=== PATIENT | male | born 1970 | race Caucasian/White ===

== ENCOUNTER 2016-10-31 06:50 | Emergency (ER) | payer OTHER ==
[2016-10-31] MEDS ORDERED: ONDANSETRON 4 MG/2 ML VIAL IVPB ONE (07:04)
[2016-10-31] MEDS ORDERED: SODIUM CHLORIDE 0.9% 1000 ML INFUS.BAG IV ONE (07:04)
[2016-10-31] MEDS ORDERED: FAMOTIDINE 20 MG/50 ML IVPB 50 ML IVPB ONE ×4 (07:04→07:19)
[2016-10-31 07:05] VITALS: BP 140/93; PULSE 53; TEMP 97.5; BMI 26.7
--- NOTE | 2016-10-31 07:08 | PDOC ---
History of Present Illness - General Chief Complaint: Pain, Acute Stated Complaint: UPPER ABDOMINAL PAIN, DIARRHEA Time Seen by Provider: 10/31/16 07:00 History Source: Patient Exam Limitations: No Limitations - History of Present Illness Initial Comments: 10/31/16 07:00 45 year male, hs of GERD on nexium presents with upper abd symptoms x 12 hours. Ate heavy meal last night. Since then has had abd bloating, urge to vomit, multiple bouts of diarrhea, gripping epigastric pain. No fever/ chills. pmh: as above no dm, htn fhx: nonc-ntrib ros: reviewed and otherwise negative Past History - Past Medical History Allergies/Adverse Reactions: Allergies Allergy/AdvReac Type Severity Reaction Status Date / Time orphenadrine citrate Allergy Verified 10/31/16 06:52 [From Norflex] Home Medications: Ambulatory Orders Esomeprazole Magnesium [Nexium 24Hr] 40 mg PO DAILY 10/31/16 *Physical Exam - Physical Exam General Appearance: Yes: Appropriately Dressed, Mild Distress HEENT: positive: Normal Voice. negative: Scleral Icterus (R), Scleral Icterus ( L) Neck: negative: Lymphadenopathy (R) Respiratory/Chest: positive: Lungs Clear Cardiovascular: positive: Regular Rhythm Gastrointestinal/Abdominal: positive: Tender Lymphatic: negative: Adenopathy Musculoskeletal: positive: Normal Inspection Extremity: positive: Normal Capillary Refill Integumentary: positive: Normal Color. negative: Dry Neurologic: positive: Fully Oriented, Normal Response Heart Score/ECG Review - ECG Intrepretation Comment:: 10/31/16 07:03 sinus at 59, nl axis, nl intervals, no ischemic findings. Medical Decision Making - Medical Decision Making 10/31/16 07:03 epigastric pain; [facility] in origin. enamorado initiated in ED *DC/Admit/Observation/Transfer Diagnosis at time of Disposition: Epigastric pain - Discharge Dispostion Condition at time of disposition: Stable
[2016-10-31] MEDS ORDERED: ONDANSETRON 4 MG/2 ML VIAL ONE (07:19)
[2016-10-31] MEDS: ONDANSETRON 4 MG/2 ML VIAL IVPB ONE ×2 (07:26→07:50)
--- NOTE | 2016-10-31 07:29 | PDOC ---
*Physical Exam - Vital Signs Last Vital Signs Temp Pulse Resp BP Pulse Ox 97.5 F L 53 L 20 140/93 100 10/31/16 06:58 10/31/16 06:58 10/31/16 06:58 10/31/16 06:58 10/31/16 06:58 ED Treatment Course - LABORATORY CBC & Chemistry Diagram: 10/31/16 07:20 10/31/16 07:20 - Medications Given in the ED: ED Medications Discontinued Medications Generic Name Dose Route Start Last Admin Trade Name Marvin PRN Reason Stop Dose Admin Famotidine/Sodium Chloride 50 mls @ 100 mls/hr 10/31/16 07:04 10/31/16 07:26 Pepcid 20 Mg Premixed Ivpb - IVPB 10/31/16 07:33 100 mls/hr ONCE ONE Administration Ondansetron HCl 4 mg 10/31/16 07:04 10/31/16 07:27 Zofran Injection IVPB 10/31/16 07:05 4 mg ONCE ONE Administration Ondansetron HCl 4 mg 10/31/16 07:08 10/31/16 07:26 Zofran Injection IVPB 10/31/16 07:09 4 mg ONCE ONE Administration Sodium Chloride 1,000 ml 10/31/16 07:04 10/31/16 07:25 Normal Saline - IV 10/31/16 07:05 1,000 ml ONCE ONE Administration Medical Decision Making - Medical Decision Making 10/31/16 07:27 Pt endorsed to me by Dr. Mcguire. Recently presented to ED with diarrhea, nausea, and upper abdominal pain since this AM. Prior history of GERD. Receiving GI cocktail, awaiting labs. Will cont to monitor. 10/31/16 08:59 Pt reassessed. He reports improvement with toradol. On exam, noted to have tenderness to BUQ, no rebound or guarding. Of note, patient states that he started nexium by himself, has not had GI evaluation in the past. He noticed that after starting nexium, he has been able to eat "whatever I want". Will obtain sono to further evaluate. 10/31/16 10:49 No acute findings on sono. Patient is low risk for ACS by clinical eval. Likely this is GI in nature, as he has preexisting of less severe symptoms which responded well to nexium. However, he has never had GI evaluation. Recommended outpatient GI f/u, he requested information for Dr. Jefferson, which I provided. I counseled him that while the etiology of his symptoms is not clear, he should return to the ED if they persist, worsen, or if he develops new symptoms, such as chest pain, SOB, or any other concerns. *DC/Admit/Observation/Transfer Diagnosis at time of Disposition: Epigastric abdominal pain - Discharge Dispostion Disposition: HOME Condition at time of disposition: Improved Admit: No - Referrals Referrals: Charles Jefferson MD [Staff Physician] - - Patient Instructions Printed Discharge Instructions: DI for Epigastric Pain Additional Instructions: FOLLOW UP WITH YOUR PRIMARY CARE PHYSICIAN IN 1-2 DAYS. IF PAIN RETURNS, WORSENS , OR IF YOU HAVE NEW SYMPTOMS SUCH CHEST PAIN, SHORTNESS OF BREATH, OR VOMITING, RETURN TO THE ER.
[2016-10-31 07:57] LABS: BASOPHIL 3.2 % (0-2.0); EOSINOPHIL 1.4 % (0-4.5); MCH 29.4 pg (25.7-33.7); MCHC 33.2 g/dl (32.0-35.9); MEAN CELL VOLUME 88.4 fl (80-96); MEAN PLT VOLUME 10.9 fl (7.5-11.1); NEUTROPHILS 65.4 % (42.8-82.8); PLATELET COUNT 292 K/MM3 (134-434); RDW 12.4 % (11.9-15.9); WHITE BLOOD COUNT 12.6 K/mm3 (4.0-10.0)
[2016-10-31 08:23] LABS: CPK(DFH) 150 IU/L (38-174)
[2016-10-31 08:24] LABS: ALBUMIN 4.1 g/dl (3.5-5.0); ALK PHOS 68 U/L (32-92); ANION GAP 5 (8-16); BILIRUBIN,TOTAL 0.5 mg/dl (0.2-1.0); CALCIUM 9.6 mg/dl (8.4-10.2); CO2 24 mmol/L (22-28); CREATININE 0.8 mg/dl (0.6-1.3); GLUCOSE,RANDOM 108 mg/dl (74-106); SGOT/AST 29 U/L (10-42); SGPT/ALT 35 U/L (10-40); TOT PROT 6.9 g/dl (6.4-8.3)
[2016-10-31] MEDS ORDERED: KETOROLAC TROMETHAMINE 30 MG/1 ML VIAL IVPUSH ONE (08:24)
[2016-10-31] MEDS ORDERED: KETOROLAC TROMETHAMINE 30 MG/1 ML VIAL ONE (08:28)
[2016-10-31 08:56] LABS: TROPONIN I (DFP) < 0.03 ng/ml (0.03-0.50)
[2016-10-31] MEDS ORDERED: PATIENT'S OWN MEDICATION (NON-FORMULARY) (Esomeprazole Magnesium [Nexium 24hr] 40 MG) PO SCH (10:00)
[2016-10-31] MEDS ORDERED: MAG HYDROX/AL HYDROX/SIMETH 30 ML UNIT-DOSE CUP ONE (10:46)
[2016-10-31] MEDS ORDERED: MAG HYDROX/AL HYDROX/SIMETH 30 ML UNIT-DOSE CUP PO ONE (10:48)
[2016-11-01 12:33] LABS: CK MB 2.25 ng/ml (0.3-4.0)
--- NOTE | 2016-11-03 14:00 | EKG ---
Test Reason : Blood Pressure : / mmHG Vent. Rate : 059 BPM Atrial Rate : 059 BPM P-R Int : 146 ms QRS Dur : 096 ms QT Int : 400 ms P-R-T Axes : 037 036 037 degrees QTc Int : 396 ms SINUS BRADYCARDIA WITH SINUS ARRHYTHMIA NO PREVIOUS ECGS AVAILABLE Confirmed by MD FALLON, TANO ([id number]) on 11/03/2016 2:00:19 PM Referred By: Confirmed By:TANO LEHMAN MD
== END 2016-10-31 10:53 | disposition home or self-care (01) ==
LOC: FER 06:50
PROC: 3E033GC Introduction of Other Therapeutic Substance into Peripheral Vein, Percutaneous Approach (ICD-10-PCS; principal; 2016-10-31)
PROC: 3E0333Z Introduction of Anti-inflammatory into Peripheral Vein, Percutaneous Approach (ICD-10-PCS; 2016-10-31)
PROC: 3E0337Z Introduction of Electrolytic and Water Balance Substance into Peripheral Vein, Percutaneous Approach (ICD-10-PCS; 2016-10-31)
DX: R10.13 Epigastric pain (principal); K21.9 Gastro-esophageal reflux disease without esophagitis
CPT/HCPCS: 36415; 71020-TC; 76705-TC; 80053; 82550; 82553; 83690; 84484; 85025; 93005; 99284-25

== ENCOUNTER 2019-11-24 19:42 | Emergency (ER) | payer OTHER ==
[2019-11-24 19:47] VITALS: BP 137/68; PULSE 95; TEMP 97.8; BMI 27.8
--- NOTE | 2019-11-25 01:02 | PDOC ---
Documentation entered by Tea Ervin SCRIBE, acting as scribe for Lyla Moffett MD. Lyla Moffett MD: This documentation has been prepared by the ambrosioibeArcadio Maria, SCRIBE, under my direction and personally reviewed by me in its entirety. I confirm that the documentation accurately reflects all work, treatment, procedures, and medical decision making performed by me. History of Present Illness - General Chief Complaint: Rash Stated Complaint: RASH Time Seen by Provider: 11/24/19 20:22 History Source: Patient Exam Limitations: No Limitations - History of Present Illness Initial Comments: 11/24/19 20:43 The patient is a 49 year old male with no significant past medical history who presents to the emergency room with a rash on his upper lip.. As per patient, he reports this rash began 1 week ago and endorses associated burning and itchiness. Patient reports taking cortisone, neosporin and a medicated ointment from [employer] and states that after using these creams it spread around his mouth prompting him to the ER. Patient also reports having a deviated septum and endorses associated rhinorrhea and has never developed a rash because of it. Denies going to the gym. Denies working in healthcare. Denies any other symptoms. Denies any other rash. Denies any known resistant organism infection or colonization. Past History - Past Medical History Allergies/Adverse Reactions: Allergies Allergy/AdvReac Type Severity Reaction Status Date / Time orphenadrine citrate Allergy Verified 11/24/19 19:45 [From Norflex] Home Medications: Ambulatory Orders Esomeprazole Magnesium [Nexium 24Hr] 40 mg PO DAILY 10/31/16 Mupirocin Ointment [Bactroban 2% Ointment -] 1 applic TP TID #1 tube 11/24/19 COPD: No GI Disorders: Yes (GERD) - Psycho Social/Smoking Cessation Hx Smoking History: Never smoked Have you smoked in the past 12 months: No Information on smoking cessation initiated: No 'Breaking Loose' booklet given: 10/31/16 Hx Alcohol Use: (occasional) Drug/Substance Use Hx: No Substance Use Type: None Review of Systems - Review of Systems Able to Perform ROS?: Yes Comments:: 11/24/19 20:44 GENERAL/CONSTITUTIONAL: No fever or chills. No weakness. HEAD, EYES, EARS, NOSE AND THROAT: No change in vision. No ear pain or discharge. No sore throat. CARDIOVASCULAR: No chest pain or shortness of breath. RESPIRATORY: No cough, wheezing, or hemoptysis. GASTROINTESTINAL: No nausea, vomiting, diarrhea or constipation. GENITOURINARY: No dysuria, frequency, or change in urination. MUSCULOSKELETAL: No joint or muscle swelling or pain. No neck or back pain. SKIN:+Rash on upper and lower lip. NEUROLOGIC: No headache, vertigo, loss of consciousness, or change in strength/sensation. ENDOCRINE: No increased thirst. No abnormal weight change. HEMATOLOGIC/LYMPHATIC: No anemia, easy bleeding, or history of blood clots. ALLERGIC/IMMUNOLOGIC: No hives or skin allergy. *Physical Exam - Vital Signs Last Vital Signs Temp Pulse Resp BP Pulse Ox 97.8 F 95 H 18 137/68 100 11/24/19 19:42 11/24/19 19:42 11/24/19 19:42 11/24/19 19:42 11/24/19 19:42 - Physical Exam 11/24/19 20:43 GENERAL: Awake, alert, and fully oriented, in no acute distress HEAD: No signs of trauma EYES: PERRLA, EOMI, sclera anicteric, conjunctiva clear ENT: Auricles normal inspection, hearing grossly normal, nares patent, oropharynx clear without exudates. Moist mucosa NECK: Normal ROM, supple, no lymphadenopathy, JVD, or masses LUNGS: Breath sounds equal, clear to auscultation bilaterally. Dionisio wheezes, and no crackles HEART: Regular rate and rhythm, normal S1 and S2, no murmurs, rubs or gallops ABDOMEN: Soft, nontender, normoactive bowel sounds. No guarding, no rebound. No masses EXTREMITIES: Normal range of motion, no edema. No clubbing or cyanosis. No cords, erythema, or tenderness NEUROLOGICAL: Cranial nerves II through XII grossly intact. Normal speech, normal gait SKIN:+Scattered shallow, non-bloody, non-purulent, mildly tender ulcers of the exterior left nostril and the left upper lip.Left naris mildly tender and erythematous, non-bloody [id number] ulcer on the left lower lip. ED Progress Note - Progress Note Progress Note: As noted above, this otherwise healthy 49-year-old man presents with few day history of mildly tender shallow sores in the skin below his mustache and dinh of the upper and lower lip, left side. No history of trauma to the area. No previous history of this type of skin lesion. Patient states that he began to grow facial hair about 1 year ago. He has no previous history of folliculitis or fever sores. No history of fever/chills. No previous history of MRSA or other resistant organism infection or colonization. Exam as noted Wound culture taken from left nares Presumed diagnosis is staph or strep superficial infection of the skin (impetigo) Bactroban ointment 2% 3 times a day to the rash for the next 5 days. Patient should return to the ER if he has fever or increase swelling/redness of the nose or midface. Patient does not have a PMD or breaker up: Patient lives locally. Referral information for and Dr. Laboy given to the patient. Discharge - Discharge Information Problems reviewed: Yes Clinical Impression/Diagnosis: Staph skin infection Condition: Stable Disposition: HOME - Additional Discharge Information Prescriptions: Mupirocin Ointment [Bactroban 2% Ointment -] 1 applic TP TID #1 tube - Follow up/Referral Referrals: Duane Miguel MD [Staff Physician] - Bella Laboy [Staff Physician] - - Patient Discharge Instructions Patient Printed Discharge Instructions: Folliculitis Additional Instructions: bactroban ointment 2% apply to rash 3 X a day for 5 days return to ER or see your doctor if swelling/ pain/ redness worsens or fever develops followup with Dr Miguel for general medical care followup with Dr Laboy for dermatologic care - Post Discharge Activity
== END 2019-11-24 20:50 | disposition home or self-care (01) ==
LOC: FER 19:42
DX: R21 Rash and other nonspecific skin eruption (principal)
CPT/HCPCS: 87070; 87077; 87186; 87205; 99282-25

== ENCOUNTER 2021-10-28 11:46 | Day surgery (SDC) | payer OTHER ==
[2021-10-27 14:44] VITALS: BMI 25.1
[2021-10-28] MEDS ORDERED: MIDAZOLAM HCL 2 MG/2 ML SINGLE DOSE VIAL ONE ×2 (12:29)
[2021-10-28] MEDS ORDERED: PROPOFOL 20 ML ONE ×2 (12:30→13:37)
[2021-10-28] MEDS ORDERED: BUPIVACAINE HCL 100 ML ONE (12:41)
[2021-10-28] MEDS ORDERED: ceFAZolin SODIUM 1 GM VIAL IVPB ONE (12:46)
[2021-10-28] MEDS ORDERED: BUPIVACAINE HCL/PF 0.5% (5 MG/ML) 30 ML VIAL IJ ONE (13:46)
[2021-10-28 14:42] VITALS: TEMP 97.8
[2021-10-28 15:10] VITALS: BP 126/84; PULSE 81
== END 2021-10-28 15:00 | disposition home or self-care (01) ==
LOC: FASU 11:46
PROVIDERS: ATTEND Orthopaedic Surgery
PROC: 0MQ80ZZ Repair Left Hand Bursa and Ligament, Open Approach (ICD-10-PCS; principal; 2021-10-28 10:30)
DX: S53.32XA Traumatic rupture of left ulnar collateral ligament, initial encounter (principal); X58.XXXA Exposure to other specified factors, initial encounter; Y93.9 Activity, unspecified; Y92.9 Unspecified place or not applicable
CPT/HCPCS: 73140-TC-LT-FY; 94760